=== PATIENT | female | born 2005 ===

== ENCOUNTER 2025-05-14 08:26 | Emergency (ER) | payer OTHER ==
[~2025-05-14] VITALS: Ht 160 cm; Wt 109.3 kg
[2025-05-14 09:55] LABS: BASO % 0.2 % (0.1-1.2); EOS # 0.19 (0.04-0.54); EOS % 1.1 % (0.7-7.0); LYMPH # 1.47 (1.18-3.74); LYMPH % 8.4 % (19.3-53.1); MEAN PLATELET VOLUME 9.10 fl (9.4-12.4); MONO # 1.04 (0.24-0.82); MONO % 5.9 % (4.7-12.5); NEUT # 14.72 (1.56-6.13); NEUT % 83.9 % (34.0-71.1); RED CELL DISTRIBUTION WIDTH 12.8 % (11.6-14.4)
[2025-05-14 10:32] LABS: INR 1.01
[2025-05-14 10:35] LABS: ALT/SGPT 28.0 U/L (12-78); AST/SGOT 21.0 U/L (15-37); BILIRUBIN TOTAL 0.74 mg/dL (0.3-1.2); BUN CREA RATIO 15.0 (7.0-25.0); CREATININE SERUM 0.52 mg/dL (0.55-1.02); GFR 150.34; GLOBULINA 4.1 G/DL (2.4-3.5); GLUCOSE FASTING 123.0 mg/dL (65-100); OSMOLALITY SERUM 277.0 MOSM/KG (275-295)
== END 2025-05-14 11:50 | disposition home or self-care (01) ==
LOC: ER 08:26
PROVIDERS: General Practice
DX: Z34.90 Encounter for supervision of normal pregnancy, unspecified, unspecified trimester (principal); Z3A.13 13 weeks gestation of pregnancy; S09.8XXA Other specified injuries of head, initial encounter; V49.88XA Car occupant (driver) (passenger) injured in other specified transport accidents, initial encounter; Y93.89 Activity, other specified; Y92.89 Other specified places as the place of occurrence of the external cause; Y99.8 Other external cause status